=== PATIENT | female | born 1975 | race Caucasian/White ===

== ENCOUNTER 2017-01-31 08:57 | Inpatient (IN) | payer OTHER ==
[~2017-01-31] VITALS: Ht 165.1 cm; Wt 111.0 kg
--- NOTE | ~2017-01-31 | DS ---
Unit #: [id number] #: [id number] Patient: PAPI SINGH [id number] [address] [place], [place] [address] [id number] I MR#: [id number] NAME: PAPI SINGH ROOM: 472 Age: 42 Sex: F Admission Date: 01/31/2017 : 1975 Discharge Date: 02/02/2017 Attending Physician: Kevin Childers M.D. DISCHARGE SUMMARY HISTORY AND HOSPITAL COURSE Ms. Singh is a 42-year-old female who presented to [facility] ER with right upper quadrant diagnosed with cholelithiasis. She was transferred to [facility] and taken to the operating room where she was found to have acute cholecystitis. She had an uncomplicated laparoscopic cholecystectomy and was kept overnight on IV antibiotics. This morning she is afebrile, stable vital signs. She is tolerating a diet, and her abdomen is benign to exam. She will be discharged home today in stable condition with instruction to include diet and activity as tolerated. She may shower. She is to call the office at [phone] for followup appointment in 7 to 10 days. Prescription for hydrocodone 5-mg tablets for pain control was left, and she will be kept on Levaquin 500 mg p.o. daily for 5 days. The patient understood these instructions and will be discharged home in stable condition. Dictated by... Maddy Cronin/capri TD: 02/05/2017 07:17 JOB #: [id number] DISCHARGE SUMMARY Page 1 of 1 X Kevin Childers MD X DISCHARGE SUMMARY
--- NOTE | ~2017-01-31 | OR ---
Unit #: [id number] #: [id number] Patient: PAPI SINGH [id number] [address] [place], [place] [address] [id number] I MR#: [id number] NAME: PAPI SINGH ROOM: 472 Date of Procedure: 02/01/2017 Admission Date: 01/31/2017 Surgeon: Kevin Childers M.D. : 1975 Attending Physician: Kevin Childers M.D. OPERATIVE REPORT PREOPERATIVE DIAGNOSIS Acute biliary colic with cholelithiasis. POSTOPERATIVE DIAGNOSIS Acute cholecystitis. PROCEDURE PERFORMED Laparoscopic cholecystectomy. ANESTHESIA General endotracheal anesthesia. ESTIMATED BLOOD LOSS Less than 20 mL. INDICATIONS FOR PROCEDURE A 42-year-old female presented to [facility] with acute right upper quadrant pain. Ultrasound revealed multiple stones, but no evidence of acute cholecystitis. DESCRIPTION OF PROCEDURE The patient was transported from her hospital room to the operating room, and after induction of general endotracheal anesthesia, she was prepped and draped in usual sterile fashion. A 5-mm supraumbilical incision was made. Veress needle was placed. Pneumoperitoneum was created. Then, a 5-mm trocar was placed. Laparoscope was introduced into peritoneal cavity. Under direct vision, the epigastric and lateral ports were placed. The gallbladder was edematous and inflamed and very distended. An ovarian aspirator was used to aspirate bile, so that the gallbladder could be grasped and elevated. Adhesions were stripped away and the infundibulum was identified and retracted laterally. [place] was dissected out clearly identifying the cystic duct, gallbladder, and cystic duct-common duct junction. A single clip was placed in the cystic duct centered to gallbladder and then three clips were placed distally and the cystic duct was sharply divided. Posteriorly, the cystic artery was doubly clipped proximally and distally and divided. I dissected the gallbladder out of the liver bed. There was a significant amount of edema, but we were able to remove the gallbladder from the hepatic fossa without any spillage of stones or bile. There was good hemostasis. The gallbladder was placed in EndoCatch bag and due to its large size, I had to dilate the epigastric port to get the gallbladder out. I then recreated the pneumoperitoneum. There was adequate hemostasis. The clips Unit #: [id number] #: [id number] Patient: PAPI SINGH were well positioned. The epigastric fascial defect was closed using the neoClose device and the closure was airtight. I then reduced the pneumoperitoneum as I removed laparoscope and trocars. 0.5% Marcaine with epinephrine was infiltrated into each trocar site. Skin was closed with 4-0 Monocryl subcuticular closure and Dermabond skin adhesive. Again, sponges and needle counts were correct x3. The patient was transported to recovery in stable condition. Findings and postoperative expectations and instructions were discussed with her . Dictated by... Maddy Cronin/deena TD: 02/01/2017 12:08 JOB #: [id number] OPERATIVE REPORT Page 1 of 1 X Kevin Childers MD X PROCEDURE OPERATIVE NOTE
--- NOTE | ~2017-01-31 | CO ---
Unit #: [id number] #: [id number] Patient: PAPI MONDRAGON [id number] [address] [place], [place] [address] [id number] I MR#: [id number] NAME: PAIP MONDRAGON ROOM: 472 Age: 42 Sex: F Admission Date: 01/31/2017 : 1975 Attending Physician: Kevin Childers M.D. Consultation Date: 02/01/2017 CONSULTATION REPORT HISTORY AND EXAM Ms. Mondragon is an otherwise healthy, 42-year-old female who presented to [facility] ER with acute right upper quadrant pain and associated nausea and vomiting. She denies any fever, chills, or jaundice. Ultrasound in the emergency room revealed multiple gallstones with a Davis sign, but no wall thickening or pericholecystic fluid. Common bile duct was normal. PAST MEDICAL HISTORY Chronic lumbar disk disease, but has not had any surgery; right knee arthroscopy; uterine ablation. ALLERGIES Allergic to penicillin, sulfa, and Ambien. MEDICATIONS Her only medication is diclofenac. IMMUNIZATIONS She has not had a recent flu vaccine. FAMILY HISTORY Diabetes and cervical cancer. SOCIAL HISTORY . 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 Does not use tobacco or recreational drugs. She is a social alcohol drinker. REVIEW OF SYSTEMS Otherwise unremarkable. PHYSICAL EXAMINATION VITAL SIGNS: Temperature is 98.9, pulse 89, respirations 16, blood pressure 140/56. GENERAL APPEARANCE: She is awake, alert, and oriented. HEENT: Unremarkable. No scleral icterus. CARDIAC EXAM: Regular rate and rhythm. LUNGS: Clear. ABDOMEN: She has mild guarding in the right upper quadrant. There is no mass or rebound tenderness. There is no umbilical hernia. EXTREMITIES: No edema. NEUROLOGICAL: Grossly intact. SKIN: No skin rashes or lesions, except for a tattoo on her foot. Unit #: [id number] #: [id number] Patient: APPI MONDRAGON DI[facility]NOSTIC STUDIES LABORATORY: Chemistries are within normal limits. Beta HCG is negative. White count is 8800, hemoglobin 12, platelets 315,000. Urinalysis is negative for infection. IMAGING: Ultrasound of the gallbladder shows multiple gallstones. Common bile duct is 3 mm. ASSESSMENT AND PLAN Patient with acute biliary colic that could not be controlled in the emergency room per the ER physician. She was transferred to [place] and her pain and nausea were controlled and we plan on doing a laparoscopic cholecystectomy. I discussed the procedure with the patient including risks, benefits, and complications and the possibility of conversion to an open procedure. She and her understand and agree to proceed. Dictated by... Maddy Cronin TD: 02/01/2017 08:01 JOB #: [id number] CONSULTATION REPORT Page 1 of 1 X Kevin Childers MD X CONSULTATION REPORT
--- NOTE | ~2017-01-31 | US67 ---
[facility] A Service [facility] RADIOLOGY TEXT RESULTS PATIENT: PAPI SINGH LOCATION: [place] [address] : [birth year] UNIT #: [id number] AGE: [address]: Kevin Childers MD SEX: F ORDER DR: [id number] [place] [address] [id number] I MR#: [id number] Acc #: [id number] NAME: PAPI SINGH : 1975 SEX: F STUDY DATE/TIME: 01/31/2017 9:42 UNIT: SEDOF ROOM: [facility] STUDY DESCRIPTION: US Gallbladder Attending Physician: Kevin Childers M.D. Ordering Physician: Husam Zamora M.D. MEDICAL IMAGING REPORT This report is preliminary unless electronic signature is present. EXAM Right upper quadrant abdominal ultrasound. INDICATIONS Right-sided abdominal pain since 2 a.m. this morning with vomiting. PROCEDURE Guerra-scale and Doppler imaging right upper quadrant of the abdomen. COMPARISON None. FINDINGS Visualized portions of pancreas are unremarkable. Liver measures 22.1 cm. No liver lesion is seen on submitted images. Right kidney measures 11.4 cm and is unremarkable. There are several stones in the gallbladder but no gallbladder wall thickening or pericholecystic fluid. Common duct measures 3 mm. IMPRESSION 1. Fairly extensive cholelithiasis but no sonographic evidence for acute cholecystitis. 2. Hepatomegaly. Dictated by... Mahendra Petersen M.D. THIS IS AN ELECTRONICALLY VERIFIED REPORT Mahendra Petersen M.D. at 02/03/2017 8:50 AM EED/bd TD: 01/31/2017 14:11 [facility] A Service [facility] RADIOLOGY TEXT RESULTS PATIENT: PAPI SINGH LOCATION: [place] [address] : [birth year] UNIT #: [id number] AGE: [address]: Kevin Childers MD SEX: F ORDER DR: JENIFER #: [id number] MEDICAL IMAGING REPORT Page 1 of 1
[2017-01-31] MEDS ORDERED: DICLOFENAC PO (09:13)
[2017-01-31 09:31] LABS: BASOPHIL# 0.1 X10e3 (0-0.3); BASOPHIL% 0.6 % (0-2.5); HEMATOCRIT 41.3 % (35.0-45.0); HEMOGLOBIN 13.8 gm/dL (12.0-16.0); LYMPHOCYTE# 1.1 X10e3 (1.0-3.5); LYMPHOCYTE% 6.7 % (17.0-45.0); MEAN CELL VOLUME 84.9 FL (83-96); MEAN CORPUSCULAR HEMOGLOBIN 28.3 PG (28-34); MEAN CORPUSCULAR HGB CONC 33.4 g/dL (30-36); MEAN PLATELET VOLUME 8.7 FL (6.5-11.5); MONOCYTE# 0.3 X10e3 (0-1.0); MONOCYTE% 2.1 % (3.0-12.0); NEUTROPHIL# 14.6 X10e3 (1.5-7.1); NEUTROPHIL% 90.6 % (40-75); PLATELET COUNT 372 X10e3 (140-420); RED BLOOD COUNT 4.87 X10e (3.90-5.30); RED CELL DISTRIBUTION WIDTH 15.1 % (11.0-15.5); WHITE BLOOD COUNT 16.1 X10e3 (4.0-10.5)
[2017-01-31 09:32] LABS: DIFF IND NO
[2017-01-31 09:37] LABS: URINE APPEARANCE CLEAR; URINE BILIRUBIN NEG (NEG); URINE COLOR YELLOW; URINE GLUCOSE NEG (NORM); URINE KETONE TRACE (NEG); URINE LEUKOCYTE ESTERASE NEG (NEG); URINE NITRATE NEG (NEG); URINE PROTEIN NEG (NEG); URINE SOURCE CLEAN CATCH; URINE UROBILINOGEN 0.2 MG/DL (NORM)
[2017-01-31 09:39] LABS: MICRO INDICATED? NO; URINE BLOOD NEG (NEG)
[2017-01-31 10:01] LABS: ALBUMIN SERUM 4.3 g/dL (3.5-5.0); ALKALINE PHOSPHATASE 65 U/L (32-92); ALT (SGPT) 19 U/L (10-40); AMYLASE 32 U/L (0-46); AST (SGOT) 26 U/L (10-42); BILIRUBIN,TOTAL 0.4 mg/dL (0.2-2.0); BLOOD UREA NITROGEN 12 mg/dL (9-23); CALCIUM SERUM 8.8 mg/dL (8.4-10.2); CARBON DIOXIDE 22 mmol/L (22-31); CHLORIDE 104 mmol/L (100-111); CREATININE SERUM 0.8 mg/dL (0.6-1.4); GLOM FILT RATE Estimated 89.7 mL/min (>60); GLUCOSE FASTING 125 mg/dL (70-110); LIPASE 39 U/L (22-51); PROTEIN TOTAL SERUM 7.9 g/dL (6.0-8.3); SODIUM 136 mmol/L (135-145)
[2017-01-31 10:02] LABS: BILIRUBIN, DIRECT <0.1 mg/dL (0.0-0.2); BILIRUBIN,INDIRECT 0.3 mg/dL (0.0-0.9)
[2017-02-01 03:43] LABS: HEMATOCRIT 36.4 % (35.0-45.0); MEAN CELL VOLUME 86.4 FL (83-96); MEAN CORPUSCULAR HEMOGLOBIN 28.4 PG (28-34); MEAN CORPUSCULAR HGB CONC 32.9 g/dL (30-36); MEAN PLATELET VOLUME 8.7 FL (6.5-11.5); RED BLOOD COUNT 4.22 X10e (3.90-5.30); RED CELL DISTRIBUTION WIDTH 15.4 % (11.0-15.5); WHITE BLOOD COUNT 8.8 X10e3 (4.0-10.5)
[2017-02-01 04:00] LABS: BUN/CREATININE RATIO 8.18; CALCIUM SERUM 8.1 mg/dL (8.4-10.2); CREATININE SERUM 1.1 mg/dL (0.6-1.4); POTASSIUM 3.5 mmol/L (3.5-5.1)
[2017-02-02] MEDS ORDERED: HYDROCODON-ACE1 EAC7 PO (09:39)
[2017-02-02] MEDS ORDERED: LEVAQUIN PO (09:40)
== END 2017-02-02 10:30 | disposition home or self-care (01) | DRG 419 ==
LOC: SED 08:57 → SEDOF 13:20 → SED 13:20 → SEDOF 16:50 → C4C 17:19
PROVIDERS: Emergency Medicine; Specialist
PROC: 0FT44ZZ Resection of Gallbladder, Percutaneous Endoscopic Approach (ICD-10-PCS; principal; 2017-02-01 08:30)
DX: K80.00 Calculus of gallbladder with acute cholecystitis without obstruction (principal); E66.9 Obesity, unspecified; M46.46 Discitis, unspecified, lumbar region; Z88.0 Allergy status to penicillin; Z88.2 Allergy status to sulfonamides
CPT/HCPCS: 36415; 76705; 80048; 80076; 81003; 82150; 83690; 84703; 85025; 85027; 88304; 96361; 96374; 96375; 99285; C9113; J0692; J1100; J1170; J1650; J1885; J1956; J2250; J2270; J2405; J2710; J2765